=== PATIENT | female | born 1980 | race Caucasian/White ===

== ENCOUNTER 2017-02-07 21:30 | Emergency (ER) | payer OTHER ==
[~2017-02-07] VITALS: Ht 167.6 cm; Wt 60.0 kg
[~2017-02-07 21:30] MED LIST: IBUP-1542 PO; METR500T14 PO
[2017-02-07 21:37] VITALS: Ht 167.6 cm; Wt 60.0 kg
--- NOTE | 2017-02-07 23:25 | RADRPT ---
PROCEDURE: X-ray right elbow CLINICAL INDICATION: Right elbow pain, with reference marker directed towards the medial aspect of the right elbow. TECHNIQUE: 3 views right elbow COMPARISON: None FINDINGS: Small non fused apophysis at the medial epicondylar region. Otherwise no acute fracture or dislocat ion. No joint fluid to suggest an occult fracture. A small marginal osteophyte versus dystrophic li gamentous calcification may be present at the medial aspect of the ulnohumeral joint. IMPRESSION: No acute fracture. RPTAT: [facility] Physician Savita Date Time Electronically viewed and signed by Physician Savita on 02/07/2017 23:24 RS/
[2017-02-07] MEDS ORDERED: IBUP-1542 PO (23:28)
--- NOTE | 2017-02-07 23:40 | ERD ---
ER Documentation Chief Complaint Date/Time DATE: 02/07/17 TIME: 23:38 Chief Complaint RT ARM PAIN, DENIES TRAUMA, WHEN PAIN IS BACK C/O RT CHEST PAIN. NO SOB HPI 87-year-old female presents to the emergency department complaining of right arm pain locating in her elbow that radiates to her chest for the past 6 months. Patient states that she has been evaluated by primary care physician already and has been doing physical therapy however she has not done it for the past 3 weeks. Patient has tried [place], ibuprofen and Tylenol in the past. Patient rates the pain 5 out of 10 with movement. She denies any restricted range of motion. She denies any trauma. Denies any fevers. ROS All systems reviewed and are negative except as per history of present illness. Medications Home Meds Active Scripts Ibuprofen* (Motrin*) 600 Mg Tab, 600 MG PO Q6H Y for PAIN AND OR ELEVATED TEMP, #30 TAB Prov:KAREN REID PA-C 02/07/17 Metronidazole* (Metronidazole*) 500 Mg Tablet, 500 MG PO BID for 7 Days, TAB Prov:YAMILET,VANESSA C 12/19/15 Ibuprofen* (Motrin*) 600 Mg Tab, 600 MG PO Q6, #30 TAB Prov:YAMILETVANESSA C 12/19/15 Allergies Allergies: Coded Allergies: No Known Drug Allergy (Verified Allergy, Unknown, 08/27/07) PMhx/Soc History of Surgery: No Anesthesia Reaction: No Hx Neurological Disorder: No Hx Respiratory Disorders: No Hx Cardiac Disorders: No Hx Psychiatric Problems: No Hx Miscellaneous Medical Probl: Yes (MIGRAINES ) Hx Alcohol Use: No Hx Substance Use: No Hx Tobacco Use: No Smoking Status: Never smoker Physical Exam Vitals Vital Signs Date Time Temp Pulse Resp B/P Pulse Ox O2 Delivery O2 Flow Rate FiO2 02/07/17 21:37 97.0 62 18 106/53 99 Physical Exam General: WD/WN, in no apparent distress, non-toxic appearing HENT: NC/AT Eyes: Conjunctiva normal Neck: Supple Pulm: Clear to auscultation, normal labored breathing; no wheezing/rales/ rhonchi heard CV: Good capillary refill GI: Non-distended, no guarding Back: No masses Ext: Tender palpation over the lateral epicondyle region, full range of motion Neuro: Moves on all fours Skin: intact Psych: Normal mood Procedures/MDM 37-year-old female presents to the emergency department complaining of right elbow pain for the past 6 months which is likely due to lateral epicondylitis of the elbow due to the signs and symptoms. An x-ray was done did not show any evidence of acute fracture dislocation. Patient is neurovascular intact in hematoma stable to be discharged home to follow-up with her primary care physician for further evaluation management. Prescription for ibuprofen was provided. Discussed return to the emergency department for any worsening signs or symptoms. She understands and agrees with plan Departure Diagnosis: Primary Impression: Lateral epicondylitis of elbow Condition: Stable Patient Instructions: What is Tennis Elbow?, Treating Tennis Elbow, Tennis Elbow Additional Instructions: Visite a abel dileep noyola para un EXAMEN.Regrese a estas instalaciones si no se mejora maria guadalupe esperbamos o maria guadalupe le dijimos. [place] toda la medicina isiah y maria guadalupe se le indic. Regrese a estas instalaciones si no se mejora maria guadalupe esperbamos o maria guadalupe le dijimos. KAREN REID PA-C Feb 07, 2017 23:40
== END 2017-02-07 23:46 | disposition home or self-care (01) ==
LOC: FTE 21:30
DX: M77.11 Lateral epicondylitis, right elbow (principal)
CPT/HCPCS: 73080; Z7502

== ENCOUNTER 2017-06-20 14:42 | Emergency (ER) | payer OTHER ==
[~2017-06-20] VITALS: Ht 160 cm; Wt 60.5 kg
[2017-06-20 14:48] VITALS: Ht 160 cm; Wt 60.5 kg
[2017-06-20] MEDS ORDERED: SOD CHLORIDE 0.9% 1,000 ML IV STA (15:32)
[2017-06-20] MEDS ORDERED: ACETAMINOPHEN 500 MG TAB PO STA (15:32)
[2017-06-20] MEDS ORDERED: morphine 4 MG/ML VIAL IV STA (15:48)
[2017-06-20] MEDS ORDERED: METOCLOPRAMIDE 10 MG INJ IV ONE (16:00)
[2017-06-20] MEDS ORDERED: DIPHENHYDRAMINE 50 MG INJ IV ONE (16:00)
[2017-06-20 16:17] LABS: BASOPHILS % 0.2 % (0.0-2.0); EOSINOPHILS % 0.1 % (0.0-7.0); HEMATOCRIT 39.4 % (37.0-47.0); HEMOGLOBIN 14.1 g/dl (12.0-16.0); LYMPHOCYTES % 8.5 % (15.0-51.0); MEAN CORPUSCULAR HEMOGLOBIN 29.4 pg (29.0-33.0); MEAN CORPUSCULAR HGB CONC 35.8 g/dl (32.0-37.0); MEAN CORPUSCULAR VOLUME 82.1 fl (82.0-101.0); MEAN PLATELET VOLUME 9.5 fl (7.4-10.4); MONOCYTE # 0.5 10^3/ul (0.3-0.9); NEUTROPHIL # 9.9 10^3/ul (1.6-7.5); NEUTROPHILS % 86.8 % (39.0-77.0); PLATELET COUNT 242 10^3/UL (140-415); RED CELL DISTRIBUTION WIDTH 11.7 % (11.5-14.5); WHITE BLOOD COUNT 11.4 10^3/ul (4.8-10.8)
--- NOTE | 2017-06-20 16:18 | ERD ---
ER Documentation Chief Complaint Chief Complaint bilateral flank pain x2 months, with headache HPI This is a 37-year-old female presents the emergency department today complaining of bilateral flank pain for the past 2 months. Patient states that she recently had an ultrasound and was told that it was normal. States that she has body aches as well she has pain in her somach. 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 States that she recently got authorization for neurology specialist but has not made an appointment yet. States that she has been taking [employer] and ibuprofen. ROS All systems reviewed and are negative except as per history of present illness. Medications Home Meds Active Scripts Hydrocodone/Acetaminophen (Horton 5-325 Tablet) 1 Each Tablet, 1 TAB PO Q6H Y for PAIN, #12 TAB Prov:BIPIN JUANC 06/20/17 Naproxen* (Naprosyn*) 500 Mg Tablet, 500 MG PO BID Y for PAIN AND/OR INFLAMMATION, #30 TAB Prov:BIPIN JUANC 06/20/17 Ondansetron Hcl* (Zofran*) 4 Mg Tablet, 4 MG PO Q6H for NAUSEA AND/OR VOMITING, #30 TAB Prov:BIPIN JUAN PA-C 06/20/17 Cephalexin* (Keflex*) 500 Mg Capsule, 500 MG PO QID for 7 Days, CAP Prov:BIPIN JUAN PA-C 06/20/17 Ibuprofen* (Motrin*) 600 Mg Tab, 600 MG PO Q6H Y for PAIN AND OR ELEVATED TEMP, #30 TAB Prov:KAREN REID PA-C 02/07/17 Metronidazole* (Metronidazole*) 500 Mg Tablet, 500 MG PO BID for 7 Days, TAB Prov:VANESSA WOODARD 12/19/15 Ibuprofen* (Motrin*) 600 Mg Tab, 600 MG PO Q6, #30 TAB Prov:VANESSA WOODARD 12/19/15 Allergies Allergies: Coded Allergies: No Known Drug Allergy (Verified Allergy, Unknown, 08/27/07) PMhx/Soc History of Surgery: No Anesthesia Reaction: No Hx Neurological Disorder: No Hx Respiratory Disorders: No Hx Cardiac Disorders: No Hx Psychiatric Problems: No Hx Miscellaneous Medical Probl: Yes (MIGRAINES ) Hx Alcohol Use: No Hx Substance Use: No Hx Tobacco Use: No Smoking Status: Never smoker Physical Exam Vitals Vital Signs Date Time Temp Pulse Resp B/P Pulse Ox O2 Delivery O2 Flow Rate FiO2 06/20/17 14:48 100.5 119 20 127/79 98 Physical Exam Const: NAD Head: Atraumatic Eyes: Normal Conjunctiva ENT: Normal External Ears, Nose and Mouth. Neck: Full range of motion..~ No meningismus. Resp: Clear to auscultation bilaterally Cardio: Regular rate and rhythm, no murmurs Abd: Soft, diffuse lower abdominal pain non distended. Normal bowel sounds [place] tenderness at [place] Skin: No petechiae or rashes Back: No midline tenderness. Bilateral paraspinal tenderness and flank tenderness. No CVA tenderness. Ext: No cyanosis, or edema Neur: Awake and alert Psych: Normal Mood and Affect Result Diagram: 06/20/17 1545 06/20/17 1545 Results 24 hrs Laboratory Tests Test 06/20/17 15:45 White Blood Count 11.410^3/ul Red Blood Count 4.8010^6/ul Hemoglobin 14.1g/dl Hematocrit 39.4% Mean Corpuscular Volume 82.1fl Mean Corpuscular Hemoglobin 29.4pg Mean Corpuscular Hemoglobin Concent 35.8g/dl Red Cell Distribution Width 11.7% Platelet Count 27526^3/UL Mean Platelet Volume 9.5fl Neutrophils % 86.8% Lymphocytes % 8.5% Monocytes % 4.0% Eosinophils % 0.1% Basophils % 0.2% Nucleated Red Blood Cells % 0.0/100WBC Neutrophils # 9.910^3/ul Lymphocytes # 1.010^3/ul Monocytes # 0.510^3/ul Eosinophils # 0.010^3/ul Basophils # 0.010^3/ul Nucleated Red Blood Cells # 0.010^3/ul Urine Color YELLOW Urine Clarity CLEAR Urine pH 8.0 Urine Specific [place] 1.004 Urine Ketones NEGATIVEmg/dL Urine Nitrite NEGATIVEmg/dL Urine Bilirubin NEGATIVEmg/dL Urine Urobilinogen NEGATIVEmg/dL Urine Leukocyte Esterase NEGATIVELeu/ul Urine Microscopic RBC 27/HPF Urine Microscopic WBC 1/HPF Urine Bacteria FEW/HPF Urine Hemoglobin 3+mg/dL Urine Glucose NEGATIVEmg/dL Urine Total Protein 2+mg/dl Sodium Level 137mmol/L Potassium Level 3.4mmol/L Chloride Level 99mmol/L Carbon Dioxide Level 25mmol/L Anion Gap 16 Blood Urea Nitrogen 17mg/dl Creatinine 0.75mg/dl Glucose Level 92mg/dl Lactic Acid Level 1.8mmol/L Calcium Level 9.5mg/dl Total Bilirubin 0.6mg/dl Direct Bilirubin 0.00mg/dl Indirect Bilirubin 0.6mg/dl Aspartate Amino Transf (AST/SGOT) 21IU/L Alanine Aminotransferase (ALT/SGPT) 27IU/L Alkaline Phosphatase 68IU/L Total Protein 7.7g/dl Albumin 4.2g/dl Globulin 3.50g/dl Albumin/Globulin Ratio 1.20 Lipase 88U/L Current Medications Medications (Trade) Dose Ordered Sig/Daren Route PRN Reason Start Time Stop Time Status Last Admin Dose Admin Sodium Chloride (NS) 1,000 ml @ 1,000 mls/hr Q1H STAT IV 06/20/17 15:32 06/20/17 16:31 DC 06/20/17 15:43 Acetaminophen (Tylenol Tab) 500 mg ONCE STAT PO 06/20/17 15:32 06/20/17 15:34 DC 06/20/17 15:43 Metoclopramide HCl (Reglan) 10 mg ONCE ONCE IV 06/20/17 16:00 06/20/17 16:01 DC 06/20/17 15:54 Diphenhydramine HCl (Benadryl) 12.5 mg ONCE ONCE IV 06/20/17 16:00 06/20/17 16:01 DC 06/20/17 16:11 Morphine Sulfate (morphine) 4 mg ONCE STAT IV 06/20/17 15:48 06/20/17 15:49 DC 06/20/17 15:54 RUN DATE: 06/20/17 [facility] PAGE 1 RUN TIME: [id number] [place] [address] Collins Mathew M.D. [employer] JAKI#: [id number] Name: AASHISH ALEX Age/Sex: 37/F Attend Dr: MARQUES BORDEN DO Acct: [id number] MR# : [id number] : 1980 Location: [facility] Admit: 06/20/17 Specimen: [id number] Status: Complete Allison: 06/20/17-1552 Rcvd: 06/20-1619 Source: [facility] Sp Descrip: Procedure Result Microbiology INFLUENZA A & B BY EIA Final INFLU A&B BY EIA INFLUENZA A NEGATIVE (Ref Range Neg) INFLUENZA B NEGATIVE (Ref Range Neg) ................................................................................ ............ Flags: Critical Hi = *H Critical Lo = *L Microbiology Abnormal = * Abnormal Hi = H Abnormal Lo = L Blood Bank Abnormal = * Susceptability Flags: S = Sensitive R = Resistant I = Intermediate END OF REPORT DIAGNOSTIC IMAGING REPORT Patient: AASHISH ALEX : 1980 Age: 37 Sex: F MR #: [id number] DOS: 06/20/17 1532 Ordering MD: BIPIN JUAN PA-C Location: [facility] Room/Bed: PROCEDURE: CT ABDOMEN AND PELVIS WITHOUT CONTRAST. CLINICAL INDICATION: Abdominal pain TECHNIQUE: CT scan of the abdomen and pelvis without contrast was performed on a multidetector high-resolution CT scanner. The patient was scanned without intravenous contrast. Coronal and sagittal reformatted images were obtained from the axial source images. Images were reviewed on a high-resolution PACS workstation. The total exam CTDI equals 6.3 mGy and the total exam DLP equals 361.1 mGy-cm. One or more of the following dose reduction techniques were used: Automated exposure control. Adjustment of the mA and/or kV according to patient size. Use of iterative reconstruction technique. DICOM images are available COMPARISON: CT 12/19/2015 FINDINGS: CT abdomen: Left lower lobe calcified granuloma. There is bilateral lower lobe atelectasis. Heart size is within normal limits. There is no significant pericardial effusion. Hepatic morphology is within normal limits. No gross contour deforming masses. Gallbladder is unremarkable. No evidence of intrahepatic or extrahepatic biliary dilatation. The spleen and pancreas are within normal limits. Both adrenal glands are within normal limits. Both kidneys are and normal anatomic position. No gross renal/ureteric calculi. No evidence of obstruction or hydronephrosis. The visualized GI tract demonstrate normal caliber loops of small and large bowel. No evidence of bowel obstruction. The appendix is within normal limits. The unenhanced aorta is unremarkable. There is no same retroperitoneal lymphadenopathy. CT pelvis: The bladder is within normal limits. The rectosigmoid colon is within normal limits. Uterus is unremarkable. No significant free fluid. No pelvic lymphadenopathy. Pelvic phleboliths are noted. The visualized osseous structures, appears to be within normal limits. IMPRESSION: 1. No evidence of acute intra-abdominal/pelvic inflammatory process. No evidence of bowel obstruction. The appendix is within normal limits. 2. No evidence of free fluid or free air. No gross focal fluid collections. 3. Left lower lobe calcified granuloma. 4. Otherwise, unremarkable unenhanced CT scan of the abdomen/pelvis. RPTAT: AAPP Physician Jadiel Date Time Electronically viewed and signed by Physician Jadiel on 06/20/2017 16:42 ALLIE/ CC: BIPIN JUAN PA-C Procedures/MDM This is a 37-year-old female who presents the emergency department today complaining of bilateral flank pain for 2 months and a chronic headache. Patient has had evaluation for her headache and she is awaiting neurology specialist. At this time do not feel that she requires a head CT scan at this time as patient appears to have outpatient follow-up. Had bilateral flank pain and she did bring paperwork with her her clinic that show that there appear to be some hematuria in her urine. She also brought paperwork that showed a normal bilateral renal ultrasound that was done on June 18, 2017, 2 days ago at an outside facility. In patients persistent complaints and the fact that she had a low-grade temperature of 100.5 and was tachycardic at 119. I did obtain laboratory workup as well as imaging. Laboratory workup shows a very mildly elevated white blood cell count. She is not anemic. Platelets are within normal limits. potassium is very mildly decreased otherwise electrolytes are within normal limits. Glucose is normal limits. Liver enzymes are within normal limits. Lipase is within normal limits. Lactic acid is within normal limits. UA is negative for infection. There are 28 microscopic red blood cells. Patient denies being on her menstrual cycle. Urine test is negative CT abdomen pelvis noncontrast shows no evidence of acute intra-abdominal or pelvic inflammatory process. There is no evidence of bowel obstruction the appendix is within normal limits. There is no evidence of free fluid or free air. There is no gross focal fluid collections. There is a left lower lobe calcified granuloma. The bladder is within normal limits. Uterus is unremarkable. There is no significant free fluid and no pelvic lymphadenopathy. There are pelvic phleboliths noted. Patient complains of multiple areas of pain and febrile illness I did also obtain an influenza swab Influenza A and B is negative Patient was given IV fluids, Tylenol, morphine, Reglan and Benadryl here in the emergency department is reported significant improvement in pain. Discussed the patient with Dr Borden and he has recommended that the urine be sent for culture and to treat the patient for possible bacteria in her urine. Patient was given a prescription for Keflex. I explained to the patient that she needed follow-up with a urology specialist about the hematuria. Patient was also instructed to follow-up on her authorization for neurology specialist. patient has full active range of motion of her neck. Patient has a history of chronic headaches. I have low suspicion for meningitis despite patient's low- grade temperature. I do not feel the patient requires a head CT scan at this time as patient has had head CTs and MRIs in the past. Low suspicion for acute hemorrhage, mass, abscess, meningitis. She was also given a prescription for short course of Horton as well as Naprosyn. Continue taking her usual migraine medications as prescribed. At this time the patient is stable for discharge and outpatient management. Patient should follow up with their PCP in the next 1-2 days. They may return to the emergency department sooner for any persistent or worsening of symptoms. Patient understood and agreed with the plan. Departure Diagnosis: Primary Impression: Hematuria Hematuria type: unspecified type Qualified Code: R31.9 - Hematuria, unspecified type Additional Impression: Headache Headache type: unspecified Headache chronicity pattern: chronic headache Intractability: not intractable Qualified Code: R51 - Chronic nonintractable headache, unspecified headache type Condition: BIPIN Mullen PA-C Jun 20, 2017 16:18
[2017-06-20 16:36] LABS: ADD UMIC YES; UR ASCORBIC ACID NEGATIVE (NEGATIVE); UR BACTERIA FEW /HPF (NONE SEEN); UR BILIRUBIN (Dip) NEGATIVE (NEGATIVE); UR BLOOD (Dip) 3+ mg/dL (NEGATIVE); UR CLARITY CLEAR (CLEAR); UR COLOR YELLOW (YELLOW); UR GLUCOSE (Dip) NEGATIVE (NEGATIVE); UR KETONES (Dip) NEGATIVE (NEGATIVE); UR LEUKOCYTE ESTERASE (Dip) NEGATIVE Leu/ul (NEGATIVE); UR NITRITE (Dip) NEGATIVE (NEGATIVE); UR RBC 27 /HPF (0-5); UR SPECIFIC GRAVITY (Dip) 1.004 (1.003-1.030); UR TOTAL PROTEIN (Dip) 2+ mg/dl (NEGATIVE); UR UROBILINOGEN (Dip) NEGATIVE (NEGATIVE)
[2017-06-20 16:44] LABS: ALBUMIN 4.2 g/dl (3.3-4.9); ALBUMIN/GLOBULIN RATIO 1.2; BILIRUBIN,INDIRECT 0.6 mg/dl (0-1.1); BILIRUBIN,TOTAL 0.6 mg/dl (0.2-1.3); CALCIUM 9.5 mg/dl (8.4-10.2); CREATININE 0.75 mg/dl (0.44-1.00); POTASSIUM 3.4 mmol/L (3.5-5.1); TOTAL PROTEIN 7.7 g/dl (6.1-8.1)
--- NOTE | 2017-06-20 16:59 | RADRPT ---
PROCEDURE: CT ABDOMEN AND PELVIS WITHOUT CONTRAST. CLINICAL INDICATION: Abdominal pain TECHNIQUE: CT scan of the abdomen and pelvis without contrast was performed on a multidetector hig h-resolution CT scanner. The patient was scanned without intravenous contrast. Coronal and sagittal reformatted images were obtained from the axial source images. Images were reviewed on a high-resol [employer] PACS workstation. The total exam CTDI equals 6.3 mGy and the total exam DLP equals 361.1 mGy-c m. One or more of the following dose reduction techniques were used: Automated exposure control. Adjustment of the mA and/or kV according to patient size. Use of iterative reconstruction technique. DICOM images are available COMPARISON: CT 12/19/2015 FINDINGS: CT abdomen: Left lower lobe calcified granuloma. There is bilateral lower lobe atelectasis. Heart size is within normal limits. There is no significant pericardial effusion. Hepatic morphology is within normal limits. No gross contour deforming masses. Gallbladder is unrema rkable. No evidence of intrahepatic or extrahepatic biliary dilatation. The spleen and pancreas are within normal limits. Both adrenal glands are within normal limits. Both kidneys are and normal anatomic position. No gross renal/ureteric calculi. No evidence of obstr uction or hydronephrosis. The visualized GI tract demonstrate normal caliber loops of small and large bowel. No evidence of magnus wel obstruction. The appendix is within normal limits. The unenhanced aorta is unremarkable. There is no same retroperitoneal lymphadenopathy. CT pelvis: The bladder is within normal limits. The rectosigmoid colon is within normal limits. Uterus is unrem arkable. No significant free fluid. No pelvic lymphadenopathy. Pelvic phleboliths are noted. The visualized osseous structures, appears to be within normal limits. IMPRESSION: 1. No evidence of acute intra-abdominal/pelvic inflammatory process. No evidence of bowel obstructio n. The appendix is within normal limits. 2. No evidence of free fluid or free air. No gross focal fluid collections. 3. Left lower lobe calcified granuloma. 4. Otherwise, unremarkable unenhanced CT scan of the abdomen/pelvis. RPTAT: AAPP Physician Jadiel Date Time Electronically viewed and signed by Physician Jadiel on 06/20/2017 16:42 JL/
[2017-06-20] MEDS ORDERED: CEPH-443 PO (19:02)
[2017-06-20] MEDS ORDERED: ONDA4TAB8 PO (19:03)
[2017-06-20] MEDS ORDERED: NAPR-260 PO (19:04)
[2017-06-20] MEDS ORDERED: HYDR-906 PO (19:04)
[2017-06-20 19:46] VITALS: BP 106/61; PULSE 82; RESP 20; TEMP 99.1
== END 2017-06-20 19:47 | disposition home or self-care (01) ==
LOC: FTE 14:42
DX: R31.9 Hematuria, unspecified (principal); R51 Headache
CPT/HCPCS: 36415; 74176; 80053; 81001; 83605; 83690; 85025; 87086; 87400; 96374; 96375; J1200; J2270; J2765; J7030; Z7502; Z7610

== ENCOUNTER 2017-07-16 11:40 | Emergency (ER) | END 2017-07-16 17:48 | disposition home or self-care (01) ==

== ENCOUNTER 2017-11-15 05:44 | Day surgery (SDC) | END 2017-11-15 12:08 | disposition home or self-care (01) ==